=== PATIENT | female | born 1945 | race Caucasian/White ===

== ENCOUNTER → 2021-04-13 | Outpatient (REF) | payer MEDICARE, BC | LOC: M SFHCRHEU 15:57 | PROVIDERS: ATTEND Internal Medicine | DX: M06.4 Inflammatory polyarthropathy (principal) ==

== ENCOUNTER → 2022-03-13 | Outpatient (REF) | payer MEDICARE, BC ==
[2022-03-13 17:11] LABS: BASO # 0.1 10^3/uL (0.0-0.2); BASO % 0.7 % (0.0-1.0); EOS % 0.2 % (0.0-3.0); HEMATOCRIT 36.7 % (36.0-47.0); HEMOGLOBIN 11.6 g/dl (12.0-15.5); LYMPH # 0.9 10^3/uL (1.5-5.0); LYMPH % 9.4 % (24.0-44.0); MEAN CORPUSCULAR HEMOGLOBIN 32.1 pg (27.0-33.0); MEAN CORPUSCULAR HGB CONC 31.6 g/dl (32.0-36.5); MEAN CORPUSCULAR VOLUME 101.7 fl (80.0-96.0); MONO # 0.5 10^3/uL (0.0-0.8); MONO % 5.4 % (2.0-8.0); NEUTROPHILS # 8.2 10^3/uL (1.5-8.5); NEUTROPHILS % 83.8 % (36.0-66.0); PLATELET COUNT, AUTOMATED 398 10^3/uL (150-450); RED BLOOD COUNT 3.61 10^6/uL (4.00-5.40); WHITE BLOOD COUNT 9.8 10^3/uL (4.0-10.0)
[2022-03-13 17:40] LABS: ERYTHROCYTE SEDIMENTATION RATE 52 mm/hr (0-30)
[2022-03-13 18:38] LABS: ALBUMIN 3.8 G/DL (3.2-5.2); ALT/SGPT 13 U/L (7.0-40); BILIRUBIN,DIRECT < 0.1 MG/DL (<0.4); BILIRUBIN,TOTAL 0.4 MG/DL (0.3-1.2); BLOOD UREA NITROGEN 17 MG/DL (9-23); CALCIUM LEVEL 9.4 MG/DL (8.3-10.6); CARBON DIOXIDE LEVEL 27 MMOL/L (20-31); CHLORIDE LEVEL 101 MMOL/L (98-107); CREATININE FOR GFR 0.68 MG/DL (0.55-1.30); GLOMERULAR FILTRATION RATE > 60.0 (>39); GLUCOSE, FASTING 146 MG/DL (74-106); POTASSIUM SERUM 4.4 MMOL/L (3.5-5.1); SODIUM LEVEL 138 MMOL/L (136-145); TOTAL PROTEIN 6.8 G/DL (5.7-8.2)
== END ==
LOC: M SFHCRHEU 14:03
PROVIDERS: ATTEND Internal Medicine
DX: M06.9 Rheumatoid arthritis, unspecified (principal)

== ENCOUNTER → 2022-12-05 | Outpatient (CLI) | payer MEDICARE, BC | LOC: M CARPUL 11:22 | PROVIDERS: ATTEND Internal Medicine | DX: R06.02 Shortness of breath (principal) ==

== ENCOUNTER 2023-06-18 15:07 | Outpatient (CLI) | payer MEDICARE, BC ==
[2023-06-18 15:15] VITALS: BP 188/79; O2SAT 96
[2023-06-18] MEDS: ZOLEDRONIC ACID 5 MG in IV 1 EA IV ONE (15:27)
[2023-06-18 16:20] VITALS: BP 146/62; O2SAT 97
== END 2023-06-18 16:20 | disposition home or self-care (01) ==
LOC: M INFU 15:07
PROVIDERS: ATTEND Internal Medicine
DX: M06.9 Rheumatoid arthritis, unspecified (principal); Z88.0 Allergy status to penicillin; Z88.1 Allergy status to other antibiotic agents; Z88.8 Allergy status to other drugs, medicaments and biological substances
CPT/HCPCS: 96365; J3489

== ENCOUNTER 2024-07-06 11:14 | Outpatient (CLI) | payer MEDICARE, BC ==
[~2024-07-06] VITALS: Ht 152.4 cm; Wt 64.5 kg
[2024-07-06] MEDS: ZOLEDRONIC ACID 5 MG in IV 1 EA IV ONE (12:02)
[2024-07-06 12:06] VITALS: BP 137/62; O2SAT 94
[2024-07-06 12:45] VITALS: BP 148/67; O2SAT 93
== END 2024-07-06 12:45 ==
LOC: M INFU 11:14
PROVIDERS: ATTEND Internal Medicine
DX: M06.9 Rheumatoid arthritis, unspecified (principal); Z88.0 Allergy status to penicillin; Z88.1 Allergy status to other antibiotic agents; Z88.8 Allergy status to other drugs, medicaments and biological substances
CPT/HCPCS: 96365; J3489